=== PATIENT | male | born 2000 | race Caucasian/White ===

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

== ENCOUNTER 2019-02-28 20:41 | Emergency (ER) | payer BC, OTHER ==
[~2019-02-28] VITALS: Ht 180.3 cm; Wt 106.8 kg
[2019-02-28] MEDS ORDERED: DEXAMETHASONE 4 MG TABLET PO ONE (21:45)
[2019-02-28 22:35] VITALS: BP 125/73
== END 2019-02-28 22:45 | disposition home or self-care (01) ==
LOC: EMS 20:43
DX: J02.9 Acute pharyngitis, unspecified (principal); J45.909 Unspecified asthma, uncomplicated
CPT/HCPCS: 86308; 87430